=== PATIENT | male | born 1975 | race Caucasian/White ===

== ENCOUNTER 2016-10-04 01:47 | Inpatient (IN) | payer OTHER ==
--- NOTE | ~2016-10-04 | DS ---
Unit #: [id number] #: [id number] Patient: CHELSEA ARAYA [id number] [address] [address] [id number] I MR#: [id number] NAME: CHELSEA ARAYA. ROOM: 452 Age: 41 Sex: M Admission Date: 10/04/2016 : 1975 Discharge Date: 10/06/2016 Attending Physician: Muriel Parikh M.D. Primary Care Physician: No Primary Care Physician DISCHARGE SUMMARY PRINCIPAL DIAGNOSES 1. Acute upper gastrointestinal bleed secondary to prepyloric gastric ulcer with visible bleeding vessel, status post hemostasis. 2. Pyloric stenosis, status post dilatation. 3. Acute blood loss anemia, status post transfusion of four units of packed red blood cells. 4. 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 5. Gastroparesis, maintained on Reglan. 6. Hypertension. 7. Tobaccoism. 8. Right renal mass consistent with metastatic renal cancer. This is associated with sclerotic lesions of the spine concerning for metastases. 9. Severe confluent ulcerative esophagitis. 10. Iron deficiency anemia. CONSULTANTS Dr. Wood, gastroenterology. PROCEDURES EGD on October 05, 2016 with severe confluent ulcerative esophagitis involving the mid and distal esophagus. There is a large ulcer in the prepyloric antral area which is about 2 cm in size with a visible vessel. This ablated using heater probe application. Pyloric outlet obstruction with a stricture in the first part of duodenum was noted. CLINICAL HISTORY AND HOSPITAL COURSE Mr. Araya is a 41-year-old male with a history of severe peptic ulcer disease and recent findings of ulcer who presented to the emergency department with a recurrent upper GI bleed. Please refer to H and P for further details. Hemoglobin upon presentation was found to be low at 7.4 and subsequently dropped to 6.4. Patient was transfused two units of packed red blood cells. Dr. Wood was consulted and the patient underwent repeat EGD with findings as noted. He has been maintained on PPI drip for two days post procedure and he has had no further hematemesis and is tolerating food. Hemoglobin did drop again overnight from 6.7 to 6.6 but the patient received two units and hemoglobin now remains stable at 9.2. I will note patient also received Venofer due to his history of iron deficiency. Patient is now tolerating food and I think he can be discharged home. I did discuss with him evaluation of his renal mass but he states he wants Unit #: [id number] #: [id number] Patient: CHELSEA ARAYA to fix his stomach first and continues to decline a workup. DISCHARGE CONDITION Stable. DISCHARGE STATUS Discharge to home. DISCHARGE MEDICATIONS 1. Metoprolol tartrate 25 mg b.i.d. 2. Senokot S two tablets b.i.d. 3. Colace 100 mg b.i.d. 4. Hydralazine 25 mg b.i.d. 5. Reglan 10 mg p.o. t.i.d. 6. Omeprazole over the counter 20 mg b.i.d. in combination with Protonix 40 mg p.o. b.i.d. One month with one refill given. 7. Oxycodone 5 mg p.o. q.6 h. p.r.n. for pain, number given 10. DISCHARGE INSTRUCTIONS The patient was instructed to: 1. Follow a heart-healthy diet. 2. Refrain from any NSAID use. 3. Refrain from any tobacco use. 4. Refrain from any alcohol use. 5. Increase activity as tolerated. FOLLOWUP 1. The patient will follow up with Dr. Wood in approximately four weeks. 2. Of course he can always follow up with Dr. Parker as an outpatient if he wishes to have evaluation of his right renal mass. NOTE I will note the patient's risk for readmission is quite high. Also of note I reviewed some of his lab work and did not initiate workup for multiple endocrine neoplasia given thyroid studies appeared normal last month and calcium is normal. His mortality is quite high if indeed he has underlying renal cell carcinoma. Time spent on discharge 32 minutes. Dictated by... Muriel Parikh M.D. GEMA/yair TD: 10/07/2016 22:42 JOB #: [id number] Unit #: [id number] #: [id number] Patient: CHELSEA RAAYA DISCHARGE SUMMARY X Muriel Parikh MD X DISCHARGE SUMMARY
--- NOTE | ~2016-10-04 | OR ---
Unit #: [id number] #: [id number] Patient: CHELSEA DAWKINS [id number] [address] [address] [id number] I MR#: [id number] NAME: CHELSEA DAWKINS. ROOM: 452 Date of Procedure: 10/05/2016 Admission Date: 10/04/2016 Surgeon: Bang Wood M.D. : 1975 Attending Physician: Muriel Parikh M.D. OPERATIVE REPORT PREOPERATIVE DIAGNOSES 1. Hematemesis. 2. Anemia of acute gastrointestinal blood loss. 3. The patient has history of ulcer disease in the past. He also has bilateral renal masses, that are consistent with renal cell carcinoma. It is quite likely the patient has underlying multiple endocrine neoplasia syndrome. PROCEDURES PERFORMED 1. Upper gastrointestinal endoscopy and biopsy. 2. Upper gastrointestinal endoscopy and dilation. 3. Upper gastrointestinal endoscopy and hemorrhage control. POSTOPERATIVE DIAGNOSES 1. The patient had severe confluent ulcerative esophagitis involving the mid and distal esophagus. The changes were quite striking. 2. There was a large ulcer in the prepyloric antral area, which was about 2 cm in size with a visible vessel. The latter was ablated using heater probe application. Excellent hemostasis was achieved. 3. The patient had evidence of pyloric outlet obstruction with a stricture in the first part of duodenum. This was not possible to be navigated by the scope shaft, except after dilation with an 8- to -10 mm TTS pyloric channel balloon. The stricture was dilated up to 10 mm. RECOMMENDATIONS The patient has nonhealing large ulcer and most likely has underlying multiple endocrine neoplasia syndrome. He is therefore advised to use pantoprazole 40 mg p.o. q.i.d. This unconventional dosing is important in view of nonhealing ulcer. Also, it is important the patient does not take [id number] NSAIDs as these will delay the healing. He most likely require a repeat examination in 6 to 8 weeks for repeat dilation of the pyloric outlet stricture. SEDATION USED MAC. DESCRIPTION OF PROCEDURE Following detailed explanation of potential risks and complications of an upper endoscopy, namely perforation, bleeding, and complication related to sedation, the patient was brought to GI lab and laid in the left lateral decubitus position. Lubricated tip of the Olympus video upper endoscope was passed through the bite block into the proximal esophagus under direct Unit #: [id number] #: [id number] Patient: CHELSEA DAWKINS. The entire esophageal mucosa was examined. The patient was noted to have severe confluent ulcerative esophagitis involving the mid and distal esophagus. The scope was then advanced into the gastric cavity and the latter was insufflated. Mucosa of the fundus, body, and antrum was examined and appeared unremarkable. The patient however had a large pyloric channel ulcer with a visible vessel without active bleeding. The latter was ablated using heater probe application with coaptive coagulation. Excellent hemostasis was achieved and photodocumentation was obtained. The pylorus was intubated with visualization of the duodenal bulb. The latter was noted to have a stricture in the first part of duodenum. It was not possible to negotiate this with the shaft of the scope. The stricture was therefore dilated with an 8- to -10 mm TTS pyloric channel balloon. After dilation, the stricture could be navigated and the scope was advanced in descending duodenum. Upon withdrawal and retroflexion, incisura, cardia, and greater curve was examined and biopsy was obtained from the antrum for CLOtest. The scope was then withdrawn in the distal esophagus. The entire esophageal mucosa was examined all the way up to pharynx. No additional findings were noted. The patient tolerated the procedure without any postprocedure complications. Dictated by... Shon Luz/yokasta TD: 10/05/2016 12:33 JOB #: [id number] CC: Santo Reid M.D. OPERATIVE REPORT X Bang Wood MD X PROCEDURE OPERATIVE NOTE
--- NOTE | ~2016-10-04 | HP ---
Unit #: [id number] #: [id number] Patient: CHELSEA DAWKINS [id number] [address] [place], [place] [address] [id number] I MR#: [id number] NAME: CHELSEA DAWKINS. ROOM: 52921 Age: 41 Sex: M Admission Date: 10/04/2016 : 1975 Attending Physician: Disha Claros M.D. Primary Care Physician: No Primary Care Physician HISTORY AND PHYSICAL CHIEF COMPLAINT Vomiting blood. HISTORY OF PRESENT ILLNESS The patient is a 41-year-old white male with a history of previous admissions for upper GI bleeding with history of gastric ulcers, most recently admitted less than 30 days ago to our facility for the same thing, for which he received an EGD. He noticed he was vomiting dark red vomitus every time he would try to take a sip of water. Since he arrived in the emergency room he has had no further vomiting and he has not had any black stools nor red stools, nor diarrhea. His hemoglobin in the emergency room was noted to be 7.4, which is down from about 15 days ago when it was 8.6. The patient complains of associated "burning pain" in the stomach that is relieved with morphine and partially relieved with the Protonix drip per his report. He endorsed associated symptoms of generalized weakness, lightheadedness, fevers, chills, and sweats, all of which have improved since arrival in the emergency room. PAST MEDICAL HISTORY Significant for gastroparesis, irritable bowel syndrome, gastric ulcer disease, hypertension, tobacco abuse. Renal mass which likely represents metastatic renal cancer for which he is not interested in therapy and is associated with sclerotic lesions in the spine, which could represent metastases. PAST SURGICAL HISTORY EGD, attempted colonoscopy. He denies any other surgical history. ALLERGIES No known drug allergies per patient. HOME MEDICATIONS Protonix 40 mg p.o. b.i.d.; Senna S 2 tablets p.o. b.i.d.; metoprolol tartrate 25 mg p.o. b.i.d.; Dulcolax 10 mg CA daily; Colace 100 mg p.o. b.i.d.; hydralazine 25 mg p.o. b.i.d.; Reglan 10 mg p.o. t.i.d. 30 minutes before meals. REVIEW OF SYSTEMS A full ten point review of systems was done, positive are above in the HPI. Otherwise a full ten point review of systems is negative. FAMILY HISTORY Unit #: [id number] #: [id number] Patient: CHELSEA DAWKINS Mother with congestive heart failure. He does not know his father's medical history. No other significant medical history in the family. SOCIAL HISTORY He smokes one pack per day. He denies any drug use including marijuana. He denies any alcohol use. PHYSICAL EXAMINATION VITAL SIGNS: Temperature 97.3, pulse 96, respiratory rate 16, blood pressure 160/107. GENERAL: The patient is alert and oriented, no acute distress. CARDIOVASCULAR: Regular rate and rhythm. No murmurs. LUNGS: Clear to auscultation bilaterally. No rales, rhonchi or wheezes. ABDOMEN: Soft, nondistended, minimally tender in the epigastric area and no rebound or guarding and no masses. No hepatosplenomegaly. EXTREMITIES: No clubbing, cyanosis or edema. SKIN: No rashes or lesions. Skin is warm and dry throughout. MUSCULOSKELETAL: No joint effusions. No muscle or joint tenderness. HEENT: Head is normocephalic and atraumatic. Eyes sclerae are white. Conjunctivae are pale. Nose - external nares are normal. There is no bleeding or drainage. Mouth - mucous membranes are moist. There is no oropharyngeal lesions. NECK: Supple. No cervical lymphadenopathy. Trachea is midline. NEUROLOGIC: Patient has 5/5 strength in all four extremities. No focal neurologic deficits. DIAGNOSTIC STUDIES LABORATORY STUDIES: CBC shows a hemoglobin of 7.4, which is slightly lower than when he was here about 15 days ago. Platelets are normal. White blood cell count is normal. Complete metabolic profile is notable only for a potassium of 3.1. Review of old iron studies shows significant iron deficiency and normal TSH. Negative H. pylori screen in 2015. ASSESSMENT AND PLAN 1. Upper GI bleed. Patient has been placed on a Protonix drip. Dr. Wood with gastroenterology has been consulted. Will get serial hemoglobins. Will transfuse if hemoglobin is less than 7. Currently he is not actively vomiting blood, nor does he have any black stools, so will keep the transfusion level at hemoglobin of less than 7 for now. 2. Gastric ulcer disease. Will continue a protoxin drip. I have educated him that Aleve is just as damaging to his stomach as Ibuprofen and that Tylenol is the only urqs-kju-irjquey pain medication he should be using, although he does occasionally report using Excedrin migraine when he has headaches, which are rare. 3. Likely renal cancer, likely stage 4 with likely bone mets. The patient has been seen by urology and oncology in our hospital and has not expressed interest in investigation or treatment of this. Will refer him back to oncology and urology as outpatient if he is willing. 4. Hypertension. Will continue his home medications. 5. Gastroparesis by history, will continue his Reglan. 6. Irritable bowel syndrome, clinically stable. 7. Tobacco abuse. Will offer a nicotine patch if patient wishes. 8. DVT prophylaxis. Will place him on SCDs. Dictated by Santo Reid M.D. Unit #: [id number] #: [id number] Patient: DARLINELILYCHELSEA/kee TD: 10/04/2016 12:06 JOB #: [id number] HISTORY AND PHYSICAL X Santo Reid MD X HISTORY AND PHYSICAL
--- NOTE | ~2016-10-04 | CO ---
Unit #: [id number] #: [id number] Patient: CHELSEA DAWKINS [id number] [address] [place], [place] [address] [id number] I MR#: [id number] NAME: CHELSEA DAWKINS. ROOM: 452 Age: 41 Sex: M Admission Date: 10/04/2016 : 1975 Attending Physician: Muriel Parikh M.D. Primary Care Physician: Primary Care Physician No Consultation Date: 10/04/2016 CONSULTATION REPORT REASON FOR CONSULTATION Major upper gastrointestinal hemorrhage. HISTORY OF PRESENT ILLNESS The patient has history of hematemesis and anemia of acute gastrointestinal blood loss. His admission hemoglobin was 6.4. Baseline hemoglobin is around 9. The patient does have previous history of pyloric channel ulcer, which was failure to heal. The patient apparently has been vomiting blood for the past 24 hours multiple times at home and is not been able to retain any food. It is noteworthy, he has bilateral renal cell carcinomas according to Dr. Key. These are stage IV renal cancer and he is due to have follow up with Urology in near future. The patient has been admitted at least twice in the past several months. He denies any history of chest pain or syncope. PAST MEDICAL HISTORY Significant for history of peptic ulcer disease, which just failed to heal; also history of bilateral renal masses, which have been detected; and probably renal cell carcinomas according to Dr. Key; history of hypertension. There is no history of any previous surgeries in the abdomen. MEDICATIONS Included senna two tablets b.i.d., metoprolol 25 mg p.o. b.i.d., Dulcolax 10 mg p.r.n., Colace 100 mg p.o. b.i.d., hydralazine 25 mg p.o. b.i.d., Reglan 10 mg p.o. t.i.d. ALLERGIES He has no known drug allergies. FAMILY HISTORY None of colon, pancreatic cancer, or liver disease. There is history of heart failure recurrent in mother. REVIEW OF SYSTEMS Detailed review of organ systems reveals significant weight loss. There is no history of fever, chills, or rigors. No history of headache, seizure, chest pain, or syncope. No history of cough, expectoration, or hemoptysis. No history of dysuria, hematuria, or pyuria. No history of focal seizures or extremity weakness. Rest of the review of organ systems is unremarkable. PHYSICAL EXAMINATION GENERAL: He is alert and oriented, and appears to be in pain, because of Unit #: [id number] #: [id number] Patient: CHELSEA DAWKINS repeated vomiting. VITAL SIGNS: Stable with a temperature of 98.6, pulse is 94 per minute and regular, respiratory rate is 18, and blood pressure is 145/85. He weighs 218 pounds, used to be about 220 to 240 pounds in the past. HEENT: He has moderate pallor. There being no icterus, lymphadenopathy, or peripheral edema. CARDIOVASCULAR: Normal heart sounds. No murmurs on auscultation. LUNGS: Reveal normal breath sounds. Good air entry. ABDOMEN: Soft, there being no area of localized rigidity, rebound, guarding, or tenderness. Liver and spleen are not palpable. Bowel sounds normal. DIAGNOSTIC STUDIES LABORATORY RESULTS: Shows a hemoglobin of 6.4 on admission, post transfusion hemoglobin is awaited. His white count is normal. Platelet count is 618. Serum chemistry shows a BUN and creatinine of 40 and 0.8 and a potassium of 3.1. LFTs are normal. The patient does have low iron, ferritin, and transferrin saturation. CLINICAL IMPRESSION The patient with underlying iron deficiency anemia and acute upper gastrointestinal hemorrhage, most likely from nonhealing ulcers. An upper endoscopy and endotherapy is warranted to be scheduled first thing in the morning tomorrow. In the meantime, the patient will be resuscitated with packed cell transfusions. Thank you very much for asking me to see this pleasant gentleman. I appreciate the consult. Dictated by... Shon Luz/yokasta TD: 10/05/2016 13:57 JOB #: [id number] CC: Santo Reid M.D. CONSULTATION REPORT X Bang Wood MD CONSULTATION REPORT
[~2016-10-04 01:47] MED LIST: AMOXICILLIN PO; AMOXICILLIN500 M1 PO; CAPOZIDE PO; DOCUSATE SODIU100 MG PO; DULCOLAX10 MG/SUPP PR; EXCEDRIN EXTRA1 TAB PO; EXCEDRIN MIGRA1 EACH PO; FERROUS GLUCON324 MG PO; HCTZ PO; HYDRALAZINE HCL25 MG PO; HYDROCODON-ACE1 EAC5 PO; IBUPROFEN PO; LORTAB 5/500 TA1 TA1 PO; METOPROLOL TAR25 MG PO; MOTRIN600 MG PO; NAPROSYN500 MG PO; NAPROXEN; NO MEDICATIONS; NORCO 10-325 TA1 TAB PO; OMEPRAZOLE40 M1 PO; PEN-VEE K PO; PERCOCET5/325 PO; PREVACID PO; PROTONIX PO; RANITIDINE HCL150 M1 PO; REGLAN10 MG PO; SENNA S TABLET1 TAB PO; SOMA PO; SOMA250 MG PO; TOPROL XL PO; TYLENOL #3 PO; ULTRACET TABLET1 TAB PO; VICODIN PO; VOLTAREN75 MG PO; ZANTAC PO
[2016-10-04 02:12] LABS: BASOPHIL# 0.1 X10e3 (0-0.3); BASOPHIL% 0.9 % (0-2.5); EOSINOPHIL% 0.1 % (0.0-7.0); HEMATOCRIT 22.9 % (38.0-50.0); HEMOGLOBIN 7.4 gm/dL (13.0-16.0); LYMPHOCYTE# 0.6 X10e3 (1.0-3.5); LYMPHOCYTE% 7.3 % (17.0-45.0); MEAN CELL VOLUME 76.4 FL (83-96); MEAN CORPUSCULAR HEMOGLOBIN 24.6 PG (28-34); MEAN CORPUSCULAR HGB CONC 32.3 g/dL (30-36); MEAN PLATELET VOLUME 6.8 FL (6.5-11.5); MONOCYTE# 0.5 X10e3 (0-1.0); MONOCYTE% 5.6 % (3.0-12.0); NEUTROPHIL# 7.4 X10e3 (1.5-7.1); NEUTROPHIL% 86.1 % (40-75); PLATELET COUNT 386 X10e3 (140-420); RED BLOOD COUNT 2.99 X10e (3.90-5.60); RED CELL DISTRIBUTION WIDTH 28.5 % (11.0-15.5); WHITE BLOOD COUNT 8.6 X10e3 (4.0-10.5)
[2016-10-04 02:13] LABS: DIFF IND YES
[2016-10-04 02:55] LABS: ALBUMIN SERUM 3.6 g/dL (3.5-5.0); ALKALINE PHOSPHATASE 52 U/L (32-92); ALT (SGPT) 10 U/L (10-40); AST (SGOT) 16 U/L (10-42); BILIRUBIN, DIRECT 0.1 mg/dL (0.0-0.2); BILIRUBIN,INDIRECT 0.5 mg/dL (0.0-0.9); BILIRUBIN,TOTAL 0.6 mg/dL (0.2-2.0); BLOOD UREA NITROGEN 40 mg/dL (9-23); CALCIUM SERUM 8.8 mg/dL (8.4-10.2); CARBON DIOXIDE 25 mmol/L (22-31); CHLORIDE 104 mmol/L (100-111); CREATININE SERUM 0.8 mg/dL (0.6-1.4); GLOM FILT RATE Estimated ABOVE60 mL/min (>60); GLUCOSE FASTING 135 mg/dL (70-110); POTASSIUM 3.1 mmol/L (3.5-5.1); PROTEIN TOTAL SERUM 6.5 g/dL (6.0-8.3); SODIUM 136 mmol/L (135-145)
[2016-10-04 03:58] LABS: PLATELET ESTIMATE NORMAL (NORMAL)
[2016-10-04 03:59] LABS: ANISOCYTOSIS MOD; HYPOCHROMIA MOD; POIKILOCYTOSIS MOD
[2016-10-04 09:31] LABS: BASOPHIL# 0.1 X10e3 (0-0.3); BASOPHIL% 0.8 % (0-2.5); HEMATOCRIT 20.2 % (38.0-50.0); LYMPHOCYTE# 1.2 X10e3 (1.0-3.5); LYMPHOCYTE% 13.8 % (17.0-45.0); MEAN CELL VOLUME 76.8 FL (83-96); MEAN CORPUSCULAR HEMOGLOBIN 24.5 PG (28-34); MEAN CORPUSCULAR HGB CONC 31.8 g/dL (30-36); MEAN PLATELET VOLUME 6.5 FL (6.5-11.5); MONOCYTE# 0.8 X10e3 (0-1.0); MONOCYTE% 9.6 % (3.0-12.0); NEUTROPHIL# 6.6 X10e3 (1.5-7.1); NEUTROPHIL% 75.8 % (40-75); RED BLOOD COUNT 2.63 X10e (3.90-5.60); RED CELL DISTRIBUTION WIDTH 28.4 % (11.0-15.5); WHITE BLOOD COUNT 8.7 X10e3 (4.0-10.5)
[2016-10-04 09:33] LABS: DIFF IND NO; HEMOGLOBIN 6.4 gm/dL (13.0-16.0); PLATELET COUNT 604 X10e3 (140-420)
[2016-10-04 09:42] LABS: PARTIAL THROMBOPLASTIN TIME 23.3 SECONDS (23.5-31.3); PROTHROMBIN TIME (PATIENT) 10.9 SECONDS (9.6-11.5)
[2016-10-04 09:54] LABS: BLOOD UREA NITROGEN 39 mg/dL (9-23); BUN/CREATININE RATIO 35.45; CALCIUM SERUM 8.5 mg/dL (8.4-10.2); CARBON DIOXIDE 26 mmol/L (22-31); CHLORIDE 102 mmol/L (100-111); CREATININE SERUM 1.1 mg/dL (0.6-1.4); GLOM FILT RATE Estimated ABOVE60 mL/min (>60); GLUCOSE FASTING 152 mg/dL (70-110); SODIUM 137 mmol/L (135-145)
[2016-10-05 00:35] LABS: HEMOGLOBIN 7.8 gm/dL (13.0-16.0)
[2016-10-05 10:26] LABS: HEMATOCRIT 24.2 % (38.0-50.0); HEMOGLOBIN 7.8 gm/dL (13.0-16.0); MEAN CORPUSCULAR HEMOGLOBIN 25.8 PG (28-34); MEAN PLATELET VOLUME 6.4 FL (6.5-11.5); RED BLOOD COUNT 3.01 X10e (3.90-5.60); RED CELL DISTRIBUTION WIDTH 24.7 % (11.0-15.5); WHITE BLOOD COUNT 5.3 X10e3 (4.0-10.5)
[2016-10-05 10:29] LABS: MEAN CELL VOLUME 80.5 FL (83-96)
[2016-10-05 10:55] LABS: BLOOD UREA NITROGEN 23 mg/dL (9-23); BUN/CREATININE RATIO 25.55; CALCIUM SERUM 8.5 mg/dL (8.4-10.2); CARBON DIOXIDE 25 mmol/L (22-31); CHLORIDE 105 mmol/L (100-111); CREATININE SERUM 0.9 mg/dL (0.6-1.4); GLOM FILT RATE Estimated ABOVE60 mL/min (>60); GLUCOSE FASTING 102 mg/dL (70-110); MAGNESIUM 1.8 mg/dL (1.6-3.0); POTASSIUM 4.1 mmol/L (3.5-5.1); SODIUM 136 mmol/L (135-145)
[2016-10-05 12:32] LABS: BASOPHIL# 0.2 X10e3 (0-0.3); BASOPHIL% 2.7 % (0-2.5); EOSINOPHIL# 0.2 X10e3 (0-0.7); EOSINOPHIL% 2.8 % (0.0-7.0); HEMATOCRIT 25.1 % (38.0-50.0); HEMOGLOBIN 8.1 gm/dL (13.0-16.0); LYMPHOCYTE# 1.4 X10e3 (1.0-3.5); LYMPHOCYTE% 22.1 % (17.0-45.0); MEAN CELL VOLUME 80.2 FL (83-96); MEAN CORPUSCULAR HEMOGLOBIN 25.9 PG (28-34); MEAN CORPUSCULAR HGB CONC 32.4 g/dL (30-36); MEAN PLATELET VOLUME 6.4 FL (6.5-11.5); MONOCYTE# 0.6 X10e3 (0-1.0); MONOCYTE% 9.9 % (3.0-12.0); NEUTROPHIL% 62.5 % (40-75); PLATELET COUNT 518 X10e3 (140-420); RED BLOOD COUNT 3.13 X10e (3.90-5.60); WHITE BLOOD COUNT 6.4 X10e3 (4.0-10.5)
[2016-10-05 12:38] LABS: DIFF IND NO
[2016-10-05 19:58] LABS: HEMATOCRIT 20.4 % (38.0-50.0)
[2016-10-05 20:13] LABS: HEMOGLOBIN 6.6 gm/dL (13.0-16.0)
[2016-10-06 03:28] LABS: BASOPHIL# 0.2 X10e3 (0-0.3); BASOPHIL% 3.8 % (0-2.5); EOSINOPHIL# 0.2 X10e3 (0-0.7); EOSINOPHIL% 5.3 % (0.0-7.0); HEMATOCRIT 27.1 % (38.0-50.0); LYMPHOCYTE# 1.5 X10e3 (1.0-3.5); LYMPHOCYTE% 32.7 % (17.0-45.0); MEAN CELL VOLUME 81.5 FL (83-96); MEAN CORPUSCULAR HEMOGLOBIN 27.1 PG (28-34); MEAN CORPUSCULAR HGB CONC 33.2 g/dL (30-36); MEAN PLATELET VOLUME 6.3 FL (6.5-11.5); MONOCYTE# 0.5 X10e3 (0-1.0); MONOCYTE% 11.7 % (3.0-12.0); NEUTROPHIL# 2.1 X10e3 (1.5-7.1); NEUTROPHIL% 46.5 % (40-75); PLATELET COUNT 415 X10e3 (140-420); RED BLOOD COUNT 3.33 X10e (3.90-5.60); RED CELL DISTRIBUTION WIDTH 22.5 % (11.0-15.5); WHITE BLOOD COUNT 4.6 X10e3 (4.0-10.5)
[2016-10-06 03:29] LABS: DIFF IND NO
[2016-10-06 04:01] LABS: BLOOD UREA NITROGEN 23 mg/dL (9-23); CALCIUM SERUM 8.3 mg/dL (8.4-10.2); CARBON DIOXIDE 27 mmol/L (22-31); CHLORIDE 108 mmol/L (100-111); GLOM FILT RATE Estimated ABOVE60 mL/min (>60); GLUCOSE FASTING 94 mg/dL (70-110); MAGNESIUM 2.2 mg/dL (1.6-3.0); POTASSIUM 4.4 mmol/L (3.5-5.1); SODIUM 135 mmol/L (135-145)
[2016-10-06 08:07] LABS: HEMATOCRIT 26.7 % (38.0-50.0); HEMOGLOBIN 8.7 gm/dL (13.0-16.0)
[2016-10-06 15:33] LABS: HEMATOCRIT 28.5 % (38.0-50.0); HEMOGLOBIN 9.2 gm/dL (13.0-16.0)
[2016-10-06] MEDS ORDERED: OXYCODONE15 M1 PO (17:21)
[2016-10-06] MEDS ORDERED: PROTONIX PO (17:22)
[2016-10-06 17:43] LABS: URINE SOURCE CLEAN CATCH
[2016-10-06 17:48] LABS: URINE APPEARANCE CLEAR; URINE BILIRUBIN NEG (NEG); URINE BLOOD NEG (NEG); URINE COLOR YELLOW; URINE GLUCOSE NEG (NEG); URINE KETONE NEG (NEG); URINE LEUKOCYTE ESTERASE NEG (NEG); URINE NITRATE NEG (NEG); URINE PH 7.5 (5-8); URINE PROTEIN NEG (NEG); URINE SPECIFIC GRAVITY 1.012 (1.003-1.035)
== END 2016-10-06 18:25 | disposition home or self-care (01) | DRG 378 ==
LOC: CED 01:47 → CEDOF 04:05 → C4B 17:39
PROVIDERS: Emergency Medicine; Internal Medicine; Internal Medicine Gastroenterology
PROC: 30233N1 Transfusion of Nonautologous Red Blood Cells into Peripheral Vein, Percutaneous Approach (ICD-10-PCS; 2016-10-04)
PROC: 0DB68ZX Excision of Stomach, Via Natural or Artificial Opening Endoscopic, Diagnostic (ICD-10-PCS; principal; 2016-10-05 08:10)
PROC: 0D768ZZ Dilation of Stomach, Via Natural or Artificial Opening Endoscopic (ICD-10-PCS; 2016-10-05 08:10)
PROC: 0D568ZZ Destruction of Stomach, Via Natural or Artificial Opening Endoscopic (ICD-10-PCS; 2016-10-05 08:10)
DX: K25.0 Acute gastric ulcer with hemorrhage (principal); C64.9 Malignant neoplasm of unspecified kidney, except renal pelvis; C79.51 Secondary malignant neoplasm of bone; K31.1 Adult hypertrophic pyloric stenosis; F17.210 Nicotine dependence, cigarettes, uncomplicated; I10 Essential (primary) hypertension; D50.9 Iron deficiency anemia, unspecified; D62 Acute posthemorrhagic anemia; K22.10 Ulcer of esophagus without bleeding; K31.84 Gastroparesis; K58.9 Irritable bowel syndrome, unspecified
CPT/HCPCS: 36415; 80048; 80076; 81003; 83036; 83735; 85014; 85018; 85025; 85027; 85610; 85730; 86850; 86900; 86901; 86923; 87077; 96374; 96375; 99285; C9113; J2270; J2916; J3475; P9016